=== PATIENT | female | born 2000 | race Caucasian/White ===

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

== ENCOUNTER 2024-06-23 19:49 | Emergency (ER) | payer OTHER ==
[~2024-06-23] VITALS: Ht 165.1 cm; Wt 70.0 kg
[~2024-06-23 19:49] MED LIST changes: +ULTRAM50 MG PO
[2024-06-23] MEDS ORDERED: ALBUTEROL/IPRATROPIUM 3 ML NEB ONE (19:54)
[2024-06-23] MEDS ORDERED: ALBUTEROL/IPRATROPIUM 3 ML NEB INH ONE (20:15)
[2024-06-23 20:17] LABS: BASOPHILS 0.1 % (0-2); EOSINOPHILS 0.6 % (0-6); HEMATOCRIT 47.2 % (35.0-50.0); HEMOGLOBIN 16.2 g/dL (12.0-18.0); LYMPHOCYTES 6.4 % (24-44); MCHC 34.4 g/dl (30-36); MCV 90.4 fl (81-99); MONOCYTES 1.4 % (0-12); NEUTROPHILS 91.5 % (39-80); PLATELET COUNT 296 K/uL (140-440); RBC 5.23 M/ul (4.3-5.7); RDW 12.1 (10.5-15.0)
[2024-06-23] MEDS ORDERED: methylPREDNISolone SOD SUCC 125 MG/2 ML VIAL IV ONE (20:30)
[2024-06-23 20:36] LABS: ALBUMIN 4.8 g/dL (3.4-5.0); ALBUMIN/GLOBULIN RATIO 1.2 (1.1-2.4); ANION GAP 20.3 (7-21); BILIRUBIN, TOTAL 1.3 ng/dL (0.2-1.0); BUN/CREATININE RATIO 17.85 (6.0-28.6); CALCIUM 10.3 mg/dL (8.5-10.1); CREATININE, SERUM 0.84 mg/dL (0.55-1.02); MAGNESIUM 1.8 mg/dL (1.8-2.4); POTASSIUM 4.3 mmol/L (3.5-5.1); PROTEIN, TOTAL 8.8 g/dL (6.4-8.2)
[2024-06-23 20:59] LABS: INR 1.09 (0.80-1.30); PROTIME 13.4 Sec (11.2-14.2)
[2024-06-23] MEDS ORDERED: ASPIRIN 81 MG CHEW PO ONE (21:00)
[2024-06-23] MEDS ORDERED: FUROSEMIDE 20 MG/2 ML VIAL IV ONE (23:30)
[2024-06-23 23:37] LABS: BILIRUBIN, URINE NEGATIVE (negative); BLOOD/HGB, URINE NEGATIVE (Negative); KETONE, URINE >=80 (Negative); LEUK ESTERASE, URINE NEGATIVE (negative); NITRITE, URINE NEGATIVE (negative); PH, URINE 5.5 (5-7)
[2024-06-23] MEDS ORDERED: LORazepam 2 MG/ML VIAL IV ONE (23:45)
[2024-06-23 23:48] LABS: BACTERIA, URINE 1+ /hpf (negative); CASTS, URINE NONE SEEN \\lpf; COLLECTION TYPE, URINE CLEAN CATCH; CRYSTALS, URINE NONE SEEN (0-1+); EPITHELIAL CELLS, URINE SQUAMOUS 1+ /lpf (0-1+); REFLEX CULTURE, URINE No (No)
[2024-06-23 23:51] LABS: AMPHETAMINES, URINE NEGATIVE (NEGATIVE); BARBITURATES, URINE NEGATIVE (NEGATIVE); BENZODIAZEPINE, URINE NEGATIVE (NEGATIVE); BUPRENORPHINE, URINE NEGATIVE (NEGATIVE); CANNABINOID, URINE POSITIVE (NEGATIVE); COCAINE, URINE NEGATIVE (NEGATIVE); ECSTASY, URINE NEGATIVE (NEGATIVE); FENTANYL, URINE NEGATIVE (NEGATIVE); METHADONE, URINE NEGATIVE (NEGATIVE); OPIATES, URINE NEGATIVE (NEGATIVE); OXYCODONE, URINE NEGATIVE (NEGATIVE); PHENCYCLIDINE, URINE NEGATIVE (NEGATIVE)
[2024-06-23] MEDS ORDERED: LORazepam 2 MG/ML VIAL ONE (23:57)
[2024-06-24 00:33] VITALS: BP 125/88
--- NOTE | 2024-06-24 12:25 | EKG ---
[facility] [address] [facility] [place], [place] [address] Signed Sinus tachycardia Otherwise normal ECG No previous ECGs available Confirmed by Shirley Grimes MD ([id number]) on 06/24/2024 12:24:58 PM Electronically Signed By: SHIRLEY GRIMES MD 06/24/24 1225 PATIENT NAME: GABRIELA GUERRERO Electrocardiogram DATE OF : [birth year] PHYSICIAN: SHIRLEY GRIMES MD REPORT #: [id number] REPORT IS CONFIDENTIAL AND NOT TO BE RELEASED WITHOUT AUTHORIZATION
--- NOTE | 2024-06-24 12:25 | EKG ---
[facility] [address] [facility] [place], [place] [address] Signed Normal sinus rhythm Rightward axis Septal infarct , age undetermined Abnormal ECG When compared with ECG of 23-JUN-2024 19:54, (Unconfirmed) ST no longer depressed in Inferior leads Confirmed by Shirley Grimes MD ([id number]) on 06/24/2024 12:25:32 PM Electronically Signed By: SHIRLEY GRIMES MD 06/24/24 1225 PATIENT NAME: GABRIELA GUERRERO Electrocardiogram DATE OF : [birth year] PHYSICIAN: SHIRLEY GRIMES MD REPORT #: [id number] REPORT IS CONFIDENTIAL AND NOT TO BE RELEASED WITHOUT AUTHORIZATION
== END 2024-06-24 00:33 | disposition short-term general hospital (02) ==
LOC: ED 19:49
PROVIDERS: Internal Medicine
DX: J45.901 Unspecified asthma with (acute) exacerbation (principal); R79.89 Other specified abnormal findings of blood chemistry
CPT/HCPCS: 36415; 71045; 80053; 80307; 81001; 83735; 83880; 84484; 84703; 85025; 85379; 85610; 85651; 86140; 93005; 93010; 96374; 96375; 99285-25; A9270; J1940; J2060; J2919